=== PATIENT | male | born 1985 | race Caucasian/White ===

== ENCOUNTER 2020-04-06 01:40 | Emergency (ER) | payer MEDICAID ==
[~2020-04-06] VITALS: Ht 182.9 cm; Wt 77.3 kg
[2020-04-06 01:42] VITALS: BP 138/90
== END 2020-04-06 02:05 | disposition home or self-care (01) ==
LOC: ER 01:41
DX: Z13.89 Encounter for screening for other disorder (principal); Z72.89 Other problems related to lifestyle
CPT/HCPCS: 99283